=== PATIENT | male | born 1955 | race Caucasian/White ===

== ENCOUNTER → 2024-04-01 10:48 | Outpatient (REF) | payer MEDICARE, OTHER, SELFPAY | LOC: HWRAD 10:48 | PROVIDERS: ATTENDING PHYSICIAN Internal Medicine; FAMILY PHYSICIAN Family Medicine | DX: K51.90 Ulcerative colitis, unspecified, without complications (principal); Z92.241 Personal history of systemic steroid therapy; Z79.899 Other long term (current) drug therapy; D84.821 Immunodeficiency due to drugs; Z79.52 Long term (current) use of systemic steroids | CPT/HCPCS: 77080 ==

== ENCOUNTER 2024-09-19 07:07 | Emergency (ER) | payer MEDICARE, OTHER, SELFPAY ==
[2024-09-19 07:23] VITALS: BP 130/88
--- NOTE | 2024-09-19 08:57 | ED.GENMED ---
History of Present Illness
General
Chief Complaint: Skin Surface Trauma
Time Seen by Provider: 09/19/24 08:37
History of Present Illness
History of Present Illness:
69 yo male presents for evaluation of a minor laceration to the left hand sustained when the Dangelo around his dog leash punctured the hand. Last tetanus was 1 month ago. Bleeding controlled, not on anticoagulants
Past History
Past History
ED Past Medical History: Other (Ulcerative colitis. kidney stones, chronic kidney disease)
ED Past Surgical History: Orthopedic (Left hand surgery), Tonsilectomy and Urological (Vasectomy, vasovasectomy)
Social History
Tobacco: Non-smoker
Alcohol: Occasional
Drug: None
Personal:
Living: with family
Employment: Employed
Family History
Family History: Other (Mother with kidney stones, grandmother with ulcerative colitis, paternal uncle with kidney stones)
Review of Systems
Review of Systems
Allergies reviewed?: Yes
All Other Systems: ROS reviewed and negative except as documented in HPI and ROS
Phy Exam
Physical Exam
Physical Exam:
GEN: Well appearing, NAD, WDWN
HEENT: Oral mucosa moist, no scleral icterus
Cardiac: Regular rate
Lung: No respiratory distress, no tachypnea
MSK: No gross deformity or injuries
Skin: Good color, no pallor or jaundice, no rashes. Puncture wound to the left palm overlying the second-third interdigital webspace
Neuro: AO x3, moves all extremities freely
Psych: Calm, cooperative
Course
Vital Signs
Initial and Last Documented VS:
Initial Vital Signs
Temp Pulse Resp BP Pulse Ox
98.3 F 70 16 130/88 99
09/19/24 07:23 09/19/24 07:23 09/19/24 07:23 09/19/24 07:23 09/19/24 07:23
Last Documented Vital Signs
Temp Pulse Resp BP Pulse Ox
98.3 F 62 16 130/88 98
09/19/24 07:23 09/19/24 10:04 09/19/24 07:23 09/19/24 07:23 09/19/24 10:04
Procedures
Laceration Closure
Left Hand:
Status of Wound: clean
Size of Wound in cm: 0.5
Description of Wound Edges: sharp
Preparation: cleaned with saline
Anesthesia: 1% Lidocaine with epi
Wound exploration: explored to base- no FB
Type of Closure: single layer closure
Skin Closure Material: 5-0 chromic gut
Number of sutures: 1
MDM/Problems Addressed
MDM/Problems Addressed:
Single suture placed for closure after wound irrigation, tetanus previously up to date
*Critical Care Note
Total Time (30-74mins, 75-104mins- exclusive of procedures): Not Applicable
ED Attending Note
-
Portions of this chart may have been created with voice recognition software.� Occasional wrong word or��sound alike� substitutions may have occurred due to the inherent limitations of voice recognition software.
Discharge Plan
Departure
Patient Disposition: Home (Routine Discharge)
Date of Disposition: 09/19/24
Time of Disposition: 09:00
Patient with high blood pressure during this ER visit?: No
Discharge Problem:
Laceration of hand, left
Instructions: Laceration Repair With Stitches (DC)
Prescriptions:
No Action
vitamin E (dl, acetate) 400 UNITS capsule
400 units PO DAILY
amlodipine 5 MG tablet
5 mg PO DAILY
infliximab [Remicade] 100 MG/10 ML recon soln
100 mg IV .[id number]
Patient Comments:
03/25/21 - PT STATED LAST DOSE WAS ABOUT TWO WEEKS AGO
cholecalciferol (vitamin D3) 2,000 UNITS tablet
2,000 units PO DAILY
multivitamin with folic acid [Tab-A-Nilo] 1 TABLET tablet
1 tab PO DAILY
Lactobac 2-Bifido 1-S. therm [High Potency Probiotic] 1 CAP capsule
2 cap PO DAILY Qty: 20 0RF
azithromycin [Zithromax] 500 MG tablet
500 mg PO DAILY 7 Days Qty: 7 0RF
cefdinir [Omnicef] 300 MG capsule
300 mg PO Q12H 7 Days Qty: 14 0RF
Referrals:
Brett Hollis MD [Family Provider] -
Activity Restrictions/Additional Instructions:
Keep dry for 24 hours then wash daily with soap and water
Keep covered and change bandage each day after washing
Remove suture in 7-10 days
Interventions
Interventions:
*Risk Screen - Suicide Last Done: 09/19/24 07:23
*General Assessment Last Done: 09/19/24 07:23
*Neglect/Abuse Screening Last Done: 09/19/24 09:10
*ED- Fall Risk Assessment Last Done: 09/19/24 07:23
*ED COVID-19 Vaccine History Last Done: 09/19/24 07:23
*Nursing Disposition Last Done: 09/19/24 10:04
ED-Skin Assessment Last Done: 09/19/24 09:08
Discharge Date and Time
Discharge Date/Time: 09/19/24 09:30
Print Language: FILIPINO
== END 2024-09-19 09:30 | disposition home or self-care (01) ==
LOC: EMR 07:07
PROVIDERS: EMERGENCY PHYSICIAN Emergency Medicine; FAMILY PHYSICIAN Family Medicine
DX: S61.412A Laceration without foreign body of left hand, initial encounter (principal); W45.8XXA Other foreign body or object entering through skin, initial encounter; N18.9 Chronic kidney disease, unspecified
CPT/HCPCS: 12001; 99282

== ENCOUNTER 2025-03-03 06:30 | Day surgery (SDC) | payer MEDICARE, OTHER, SELFPAY | END 2025-03-03 14:54 | disposition home or self-care (01) | LOC: GI 06:30 | PROVIDERS: ATTENDING PHYSICIAN Internal Medicine | DX: K51.90 Ulcerative colitis, unspecified, without complications (principal); K57.30 Diverticulosis of large intestine without perforation or abscess without bleeding; K64.4 Residual hemorrhoidal skin tags; D12.3 Benign neoplasm of transverse colon; K63.89 Other specified diseases of intestine | CPT/HCPCS: 45385; 45380; 88305 ==